=== PATIENT | female | born 1995 | race Two or more races ===

== ENCOUNTER 2018-08-30 12:39 | Emergency (ER) | payer OTHER ==
[2018-08-30 13:14] LABS: BASOPHILS % (AUTO) 0.4 %; EOSINOPHILS # (AUTO) 0.1 10^3/uL (0.0-0.7); EOSINOPHILS % (AUTO) 0.9 %; HGB - HEMOGLOBIN 13.3 g/dL (12.0-16.0); LYMPHOCYTES # (AUTO) 2.4 10^3/uL (1.5-3.5); LYMPHOCYTES % (AUTO) 25.4 %; MEAN CORPUSCULAR HEMOGLOBIN 29.2 pg (27.0-31.0); MEAN CORPUSCULAR HGB CONC 33.7 g/dL (32.0-36.0); MEAN CORPUSCULAR VOLUME 86.6 fL (81.0-99.0); MEAN PLATELET VOLUME 10.8 fL (7.9-10.8); MONOCYTES # (AUTO) 0.5 10^3/uL (0.0-1.0); MONOCYTES % (AUTO) 5.3 %; NEUTROPHILS # (AUTO) 6.5 10^3/uL (1.5-6.6); NEUTROPHILS % (AUTO) 67.5 %; PLT - PLATELET COUNT 291 10^3/uL (130-450); RED BLOOD COUNT 4.56 10^6/uL (4.20-5.40); RED CELL DISTRIBUTION WIDTH 12.2 % (12.0-15.0); WHITE BLOOD COUNT 9.6 x10^3/uL (4.8-10.8)
[2018-08-30 13:37] LABS: ALBUMIN 3.9 g/dL (3.2-5.5); ALBUMIN/GLOBULIN RATIO 1.1 (1.0-2.2); BILIRUBIN,TOTAL 0.3 mg/dL (0.2-1.0); CALCIUM 9.7 mg/dL (8.5-10.3); CREATININE 0.6 mg/dL (0.4-1.0); TOTAL PROTEIN 7.4 g/dL (6.7-8.2)
--- NOTE | 2018-08-30 15:38 | Ultrasound Report ---
Reason: 10 week preg vag bleed Procedure Date: 08/30/2018 Accession Number: [id number] / [id number] Procedure: US - OB First Trimester CPT Code: FULL RESULT: EXAM: FIRST TRIMESTER OBSTETRIC ULTRASOUND (Less than 11 weeks) EXAM DATE: 08/30/2018 02:05 PM. CLINICAL HISTORY: 10 week preg vag bleed. LMP: 06/20/2018 COMPARISONS: None. TECHNIQUE: Transabdominal ultrasound examination with static image documentation. CLINICAL DATES: EGA 10 weeks 1 day with MOUNA 03/27/2019 based on LMP. ASSESSMENT: Gestational Sac: Single intrauterine. Mean gestational sac diameter: 41.3 mm = 9 weeks 4 days. Embryo: CRL (crown-rump length) 41.2 mm = 11 weeks 0 days. Cardiac activity: 169 beats per minute. Yolk sac: Not seen . Amniotic fluid: Not accurately assessed at this gestational age. Early placenta: Posterior. Other: No perigestational fluid collection demonstrated. MATERNAL STRUCTURES: Uterus: Anteverted. Unremarkable. Cervix: Closed. Right Ovary/Adnexa: The ovary measures 2.9 x 2 x 2 cm, volume 6.1 cc. Unremarkable. Left Ovary/Adnexa: The ovary measures 2.6 x 1.7 x 1.6 cm, volume 3.7 cc. Unremarkable. Free Fluid: None. Other: None. IMPRESSION: 1. Single intrauterine at EGA 11 weeks 0 days with MOUNA 03/21/2019 based on crown-rump length, which is concordant with clinical dates. 2. Assigned dating is MOUNA 03/27/2019 based on LMP. JHOANAA
[2018-08-30 16:25] LABS: BILIRUBIN,URINE NEGATIVE (NEGATIVE); GLUCOSE, URINE (UA) NEGATIVE (NEGATIVE); KETONES,URINE (UA) NEGATIVE (NEGATIVE); LEUKOCYTE ESTERASE, URINE NEGATIVE (NEGATIVE); NITRITE,URINE NEGATIVE (NEGATIVE); OCCULT BLOOD,URINE NEGATIVE (NEGATIVE); PROTEIN,URINE NEGATIVE (NEGATIVE); UROBILINOGEN,URINE 0.2 (NORMAL) E.U./dL (NORMAL)
[2018-08-30 16:27] LABS: CLARITY,URINE CLEAR (CLEAR)
--- NOTE | 2018-08-30 16:55 | ED Physician Documentation ---
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), P (1) Recently seen: Not recently seen Review of Systems Constitutional: denies: Fever, Chills Cardiac: denies: Chest pain / pressure Respiratory: denies: Cough GI: denies: Vomiting Skin: denies: Rash Musculoskeletal: denies: Neck pain, Back pain Neurologic: denies: Headache PD PAST MEDICAL HISTORY - Past Medical History Past Medical History: No - Past Surgical History Past Surgical History: No - Allergies Allergies/Adverse Reactions: Allergies Allergy/AdvReac Type Severity Reaction Status Date / Time No Known Drug Allergies Allergy Verified 08/30/18 12:47 - Living Situation Living Situation: reports: With family Living Arrangement: reports: At home - Social History Does the pt have substance abuse?: No PD ED PE NORMAL - Vitals Vital signs reviewed: Yes - General General: Alert and oriented X 3, No acute distress - HEENT HEENT: Moist mucous membranes - Neck Neck: Supple, no meningeal sign - Cardiac Cardiac: RRR - Respiratory Respiratory: No respiratory distress, Clear bilaterally - Abdomen Abdomen: Soft, Non tender, Non distended - Female Female : Pt declined - Derm Derm: Warm and dry - Extremities Extremities: No edema, No calf tenderness / cord - Neuro Neuro: Alert and oriented X 3 Results - Vitals Vitals: Vital Signs - 24 hr 08/30/18 08/30/18 12:44 16:57 Temperature 37.2 C 36.8 C Heart Rate 81 64 Respiratory 14 18 Rate Blood Pressure 118/83 H 118/65 O2 Saturation 100 97 Oxygen O2 Source Room air - Labs Labs: Laboratory Tests 08/30/18 08/30/18 08/30/18 13:07 13:07 13:07 WBC 9.6 RBC 4.56 Hgb 13.3 Hct 39.5 MCV 86.6 MCH 29.2 MCHC 33.7 RDW 12.2 Plt Count 291 MPV 10.8 Neut # (Auto) 6.5 Lymph # (Auto) 2.4 [place] # (Auto) 0.5 Eos # (Auto) 0.1 Baso # (Auto) 0.0 Absolute Nucleated RBC 0.00 Nucleated RBC % 0.0 Sodium 139 Potassium 3.8 Chloride 102 Carbon Dioxide 25 Anion Gap 12.0 BUN 11 Creatinine 0.6 Estimated GFR (MDRD) 126 Glucose 109 H Calcium 9.7 Total Bilirubin 0.3 AST 14 ALT 15 Alkaline Phosphatase 46 Total Protein 7.4 Albumin 3.9 Globulin 3.5 Albumin/Globulin Ratio 1.1 Lipase 33 HCG, Quant 346756.00 Urine Color Urine Clarity Urine pH Ur Specific [place] Urine Protein Urine Glucose (UA) Urine Ketones Urine Occult Blood Urine Nitrite Urine Bilirubin Urine Urobilinogen Ur Leukocyte Esterase Ur Microscopic Review Urine Culture Comments Blood Type 08/30/18 08/30/18 13:07 15:30 WBC RBC Hgb Hct MCV MCH MCHC RDW Plt Count MPV Neut # (Auto) Lymph # (Auto) [place] # (Auto) Eos # (Auto) Baso # (Auto) Absolute Nucleated RBC Nucleated RBC % Sodium Potassium Chloride Carbon Dioxide Anion Gap BUN Creatinine Estimated GFR (MDRD) Glucose Calcium Total Bilirubin AST ALT Alkaline Phosphatase Total Protein Albumin Globulin Albumin/Globulin Ratio Lipase HCG, Quant Urine Color YELLOW Urine Clarity CLEAR Urine pH 6.0 Ur Specific [place] 1.010 Urine Protein NEGATIVE Urine Glucose (UA) NEGATIVE Urine Ketones NEGATIVE Urine Occult Blood NEGATIVE Urine Nitrite NEGATIVE Urine Bilirubin NEGATIVE Urine Urobilinogen 0.2 (NORMAL) Ur Leukocyte Esterase NEGATIVE Ur Microscopic Review NOT INDICATED Urine Culture Comments NOT INDICATED Blood Type O POSITIVE - Rads (name of study) OB ultrasound Radiology: Prelim report reviewed, EMP read contemporaneously, See rad report (Single intrauterine at EGA 11 weeks 0 days with MOUNA 03/21/2019 based on crown-rump length, which is concordant with clinical dates. 2. Assigned dating is MOUNA 03/27/2019 based on LMP. ) PD MEDICAL DECISION MAKING - ED course Complexity details: reviewed results, re-evaluated patient, considered differential, d/w patient ED course: 23-year-old female with a threatened . IUP with heart rates present on ultrasound. No evidence of ectopic. No evidence of intrauterine demise. No other acute findings. We will follow-up with OB for further care. Patient counseled regarding signs and symptoms for which I believe and urgent re-evaluation would be necessary. Patient with good understanding of and agreement to plan and is comfortable going home at this time This document was made in part using voice recognition software. While efforts are made to proofread this document, sound alike and grammatical errors may occur. Departure - Departure Disposition: 01 Home, Self Care Clinical Impression: Threatened affecting intrauterine Condition: Good Instructions: ED Miscarriage Poss Follow-Up: Pelon Quiñonez ARNP [Primary Care Provider] - Within 3 Days Comments: Follow-up with your doctor for repeat hCG in 3 days to ensure it is going up. Your ultrasound is normal today. You are approximately 11 weeks along. Return if you worsen. It was [id number] today Discharge Date/Time: 08/30/18 17:06
[2018-08-30 16:57] VITALS: BP 118/65
== END 2018-08-30 17:06 | disposition home or self-care (01) ==
LOC: ED 12:39
DX: O20.0 Threatened abortion (principal); Z3A.11 11 weeks gestation of pregnancy
CPT/HCPCS: 76801; 80053; 81001; 81003; 83690; 84702; 85025; 86900; 86901; 87086; 99283

== ENCOUNTER 2019-02-20 05:18 | Emergency (ER) | payer OTHER ==
[2019-02-20] MEDS ORDERED: ASPIRIN CHEW 81 MG TABLET PO STA (05:34)
--- NOTE | 2019-02-20 05:34 | ED Physician Documentation ---
History of Present Illness - Stated complaint Stated Complaint: DIZZY,WEAK - Chief complaint Chief Complaint: Cardiac - History obtained from History obtained from: Patient - History of Present Illness Timing: Last night Pain level now: 5 Improved by: nothing Worsened by: no exacerbating factors - Additonal information Additional information: c/o nausea, dizziness, fatigue since last night. She then developed midline chest and RUQ pain at 10 PM which has been waxing and waning without apparent exacerbating or ameliorating factors. She is 35 weeks . Review of Systems Constitutional: reports: Fatigue. denies: Fever, Chills, Sweats Cardiac: reports: Chest pain / pressure. denies: Palpitations, Pedal edema Respiratory: denies: Dyspnea, Cough, Wheezing GI: reports: Abdominal Pain. denies: Nausea, Vomiting : reports: Now EGA (35 weeks). denies: Dysuria, Frequency Skin: denies: Rash Musculoskeletal: denies: Back pain PD PAST MEDICAL HISTORY - Past Medical History Cardiovascular: None Respiratory: None Neuro: None Endocrine/Autoimmune: None GI: None [employer]: None : None HEENT: None Psych: None Musculoskeletal: None Derm: None - Past Surgical History Past Surgical History: No /[employer]: section - Present Medications Home Medications: Ambulatory Orders Medication Instructions Recorded Confirmed Famotidine 20 mg PO DAILY #30 tablet 02/20/19 Loratadine [Allergy] 10 mg PO DAILY 02/20/19 02/20/19 - Allergies Allergies/Adverse Reactions: Allergies Allergy/AdvReac Type Severity Reaction Status Date / Time No Known Drug Allergies Allergy Verified 02/20/19 05:27 - Social History Does the pt smoke?: No Smoking Status: Never smoker Does the pt drink ETOH?: No Does the pt have substance abuse?: No - Immunizations Immunizations are current?: Yes - POLST Patient has POLST: No PD ED PE NORMAL - Vitals Vital signs reviewed: Yes - General General: Alert and oriented X 3, No acute distress, Well developed/nourished - HEENT HEENT: Moist mucous membranes - Neck Neck: Supple, no meningeal sign - Cardiac Cardiac: RRR, No murmur, No gallop, No rub - Respiratory Respiratory: No respiratory distress, Clear bilaterally - Abdomen Abdomen: Soft, Non tender - Back Back: No CVA TTP - Derm Derm: Normal color, Warm and dry - Extremities Extremities: No edema Results - Vitals Vitals: Vital Signs - 24 hr 02/20/19 02/20/19 02/20/19 05:20 05:46 06:00 Temperature 36.5 C Heart Rate 95 84 Respiratory 18 12 Rate Blood Pressure 141/78 H 128/93 H 117/81 H O2 Saturation 100 97 02/20/19 02/20/19 06:15 08:51 Temperature Heart Rate 90 98 Respiratory 14 18 Rate Blood Pressure 112/84 H 137/78 H O2 Saturation 96 100 Oxygen O2 Source Room air - Labs Labs: Laboratory Tests 02/20/19 02/20/19 02/20/19 05:45 05:45 06:45 WBC 8.2 RBC 4.18 L Hgb 11.8 L Hct 35.8 L MCV 85.6 MCH 28.2 MCHC 33.0 RDW 12.8 Plt Count 237 MPV 10.5 Neut # (Auto) 6.3 Lymph # (Auto) 1.3 L [place] # (Auto) 0.5 Eos # (Auto) 0.1 Baso # (Auto) 0.0 Absolute Nucleated RBC 0.00 Nucleated RBC % 0.0 Sodium 136 Potassium 3.6 Chloride 104 Carbon Dioxide 24 Anion Gap 8.0 BUN 8 Creatinine 0.6 Estimated GFR (MDRD) 125 Glucose 87 Calcium 8.8 Total Bilirubin 0.5 AST 16 ALT 12 Alkaline Phosphatase 102 Total Protein 6.5 L Albumin 3.2 Globulin 3.3 Albumin/Globulin Ratio 1.0 Lipase 31 Urine Color YELLOW Urine Clarity CLEAR Urine pH 6.0 Ur Specific [place] <=1.005 Urine Protein NEGATIVE Urine Glucose (UA) NEGATIVE Urine Ketones NEGATIVE Urine Occult Blood NEGATIVE Urine Nitrite NEGATIVE Urine Bilirubin NEGATIVE Urine Urobilinogen 0.2 (NORMAL) Ur Leukocyte Esterase NEGATIVE Ur Microscopic Review NOT INDICATED Urine Culture Comments NOT INDICATED Urine Creatinine Ur Total Protein Timed Protein/Creatinin Ratio 02/20/19 06:45 WBC RBC Hgb Hct MCV MCH MCHC RDW Plt Count MPV Neut # (Auto) Lymph # (Auto) [place] # (Auto) Eos # (Auto) Baso # (Auto) Absolute Nucleated RBC Nucleated RBC % Sodium Potassium Chloride Carbon Dioxide Anion Gap BUN Creatinine Estimated GFR (MDRD) Glucose Calcium Total Bilirubin AST ALT Alkaline Phosphatase Total Protein Albumin Globulin Albumin/Globulin Ratio Lipase Urine Color Urine Clarity Urine pH Ur Specific [place] Urine Protein Urine Glucose (UA) Urine Ketones Urine Occult Blood Urine Nitrite Urine Bilirubin Urine Urobilinogen Ur Leukocyte Esterase Ur Microscopic Review Urine Culture Comments Urine Creatinine 32.4 Ur Total Protein Timed < 6 Protein/Creatinin Ratio Not Reportable - Rads (name of study) RUQ US Radiology: Prelim report reviewed, See rad report PD MEDICAL DECISION MAKING - ED course Complexity details: reviewed results, re-evaluated patient, considered differential, d/w patient Departure - Departure Disposition: 01 Home, Self Care Clinical Impression: Upper abdominal pain Qualifiers: Weeks of gestation: 35 weeks Qualified Code(s): Z3A.35 - 35 weeks gestation of Condition: Stable Instructions: ED Abdominal Pain Unkn Cause Follow-Up: Pelon Quiñonez ARNP [Primary Care Provider] - Prescriptions: Famotidine 20 mg PO DAILY #30 tablet Comments: Use famotidine acid reducing medicine twice daily for the first for 5 days and t hen daily after that. You can continue antacid such as Maalox or Mylanta if needed. Tylenol if needed for pains every 4-6 hours. 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 Your blood test and ultrasound did not show any acute process of the liver or pancreas or gallbladder nor the kidneys. Consider the possibility of the reflux and heartburn causing some pain or may be musculoskeletal in which case the Tylenol should help. Discharge Date/Time: 02/20/19 08:58
[2019-02-20 05:56] LABS: BASOPHILS % (AUTO) 0.2 %; EOSINOPHILS # (AUTO) 0.1 10^3/uL (0.0-0.7); EOSINOPHILS % (AUTO) 1.3 %; HGB - HEMOGLOBIN 11.8 g/dL (12.0-16.0); LYMPHOCYTES # (AUTO) 1.3 10^3/uL (1.5-3.5); LYMPHOCYTES % (AUTO) 15.3 %; MEAN CORPUSCULAR HEMOGLOBIN 28.2 pg (27.0-31.0); MEAN CORPUSCULAR VOLUME 85.6 fL (81.0-99.0); MEAN PLATELET VOLUME 10.5 fL (7.9-10.8); MONOCYTES # (AUTO) 0.5 10^3/uL (0.0-1.0); MONOCYTES % (AUTO) 5.8 %; NEUTROPHILS # (AUTO) 6.3 10^3/uL (1.5-6.6); NEUTROPHILS % (AUTO) 76.7 %; PLT - PLATELET COUNT 237 10^3/uL (130-450); RED BLOOD COUNT 4.18 10^6/uL (4.20-5.40); RED CELL DISTRIBUTION WIDTH 12.8 % (12.0-15.0); WHITE BLOOD COUNT 8.2 x10^3/uL (4.8-10.8)
[2019-02-20 06:10] LABS: ALBUMIN 3.2 g/dL (3.2-5.5); BILIRUBIN,TOTAL 0.5 mg/dL (0.2-1.0); CALCIUM 8.8 mg/dL (8.5-10.3); CREATININE 0.6 mg/dL (0.4-1.0); TOTAL PROTEIN 6.5 g/dL (6.7-8.2)
[2019-02-20 06:56] LABS: BILIRUBIN,URINE NEGATIVE (NEGATIVE); CLARITY,URINE CLEAR (CLEAR); GLUCOSE, URINE (UA) NEGATIVE (NEGATIVE); KETONES,URINE (UA) NEGATIVE (NEGATIVE); LEUKOCYTE ESTERASE, URINE NEGATIVE (NEGATIVE); NITRITE,URINE NEGATIVE (NEGATIVE); OCCULT BLOOD,URINE NEGATIVE (NEGATIVE); PROTEIN,URINE NEGATIVE (NEGATIVE); UROBILINOGEN,URINE 0.2 (NORMAL) E.U./dL (NORMAL)
[2019-02-20 07:18] LABS: CREATININE,URINE 32.4 mg/dL
[2019-02-20 07:19] LABS: TOTAL PROTEIN,URINE TIMED < 6 mg/dL
--- NOTE | 2019-02-20 08:21 | Ultrasound Report ---
Reason: RUQ pain Procedure Date: 02/20/2019 Accession Number: [id number] / [id number] Procedure: US - Abdomen Limited CPT Code: Final Report FULL RESULT: EXAM: ABDOMEN ULTRASOUND LIMITED, RUQ EXAM DATE: 02/20/2019 08:05 AM. CLINICAL HISTORY: Right upper quadrant pain. COMPARISON: None. TECHNIQUE: Real-time scanning was performed with static images obtained. FINDINGS: Liver: Normal in size and echotexture. 14.8 cm. Main portal vein flow: Hepatopetal. Gallbladder: Normal. No stones, wall thickening, or sonographic William's sign. Biliary System: CBD measures 2 mm. No intrahepatic or extrahepatic ductal dilatation. Pancreas: Distal pancreas not well-seen. Limitations secondary to bowel gas. Remaining pancreas unremarkable. Right kidney: 12.3 cm. Mild to moderate right hydronephrosis with the renal pelvis measuring 1.8 cm and the right ureteropelvic junction measuring 1.2 cm. Bladder: No obvious stone or mass. Both ureteral jets are seen. Other: Single intrauterine with a heart rate of 141 bpm. IMPRESSION: 1. No liver mass or intrahepatic bladder chelation. 2. Normal gallbladder and common bile duct. Distal pancreas not well seen. Remaining pancreas is otherwise unremarkable. 3. Mild to moderate right hydronephrosis. Both ureteral jets are seen. Findings may be related to patient's . RADIA
[2019-02-20] MEDS ORDERED: FAMOTIDINE 20 MG TABLET PO STA (08:41)
[2019-02-20] MEDS ORDERED: ACETAMINOPHEN 325 MG TABLET PO STA (08:41)
[2019-02-20] MEDS ORDERED: MAG HYDROX/AL HYDROX/SIMETH 30 ML UDC PO STA (08:41)
--- NOTE | 2019-02-20 08:44 | ED Physician Documentation ---
ED Addendum - Addendum Addendum: 02/20/19 08:42 Patient is feeling okay at this time. She reports the pain in the upper abdomen to the chest area without any cold or cough symptoms nor any relationship to eating. There is a slight pleuritic component she says. She has had a lot of heartburn and reflux and uses Tums often. She does not have any abdominal tenderness at this time. She is breathing unlabored Neeraj. Her ultrasound report is back showing normal gallbladder kidneys and normal heart tone. No acute process seen. The common bile duct was also normal at 2 mm. The patient will be discharged home at this point. Possibilities include esophagitis, some possible mild pleurisy, musculoskeletal pain, other process. We can treat her heartburn and reflux more consistently with some famotidine. She can add Tylenol and antacids if needed. See if this helps with her upper abdominal pain as well.
[2019-02-20 08:52] VITALS: BP 137/78
== END 2019-02-20 08:58 | disposition home or self-care (01) ==
LOC: ED 05:18
DX: O99.89 Other specified diseases and conditions complicating pregnancy, childbirth and the puerperium (principal); R10.11 Right upper quadrant pain; R42 Dizziness and giddiness; O99.613 Diseases of the digestive system complicating pregnancy, third trimester; K21.9 Gastro-esophageal reflux disease without esophagitis; Z3A.35 35 weeks gestation of pregnancy
CPT/HCPCS: 36415; 76705; 80053; 81003; 82570; 83690; 84156; 85025; 93005; 99284; A9270; 81001; 87086

== ENCOUNTER 2019-03-06 08:00 | Outpatient (CLI) | payer OTHER ==
[2019-03-07 00:29] LABS: TRICHOMONAS VAGINALIS DNA NEGATIVE (NEGATIVE)
== END 2019-03-06 23:59 | disposition home or self-care (01) ==
LOC: LAB.R 08:00
PROVIDERS: ATTEND Obstetrics & Gynecology
DX: Z34.90 Encounter for supervision of normal pregnancy, unspecified, unspecified trimester (principal)
CPT/HCPCS: 87077; 87081; 87491; 87591; 87661

== ENCOUNTER 2019-03-11 19:47 | Outpatient (CLI) | payer OTHER ==
[2019-03-11] MEDS ORDERED: hydrOXYzine PAMOATE 25 MG CAPSULE PO ONE (22:35)
--- NOTE | 2019-03-11 22:40 | PROCEDURE REPORT ---
- HPI Diagnosis/Indication for NST: Other (labor check) Current EDU 03/27/19 Gestation 37 Weeks and 5 Days 2 Para 1 Vital Signs Temperature 98.4 F 03/11/19 20:09 Heart Rate 82 03/11/19 20:09 Respiratory Rate 16 03/11/19 20:09 O2 Saturation 100 03/11/19 20:09 Temperature 98.4 F 03/11/19 20:09 Heart Rate 82 03/11/19 20:09 Respiratory Rate 16 03/11/19 20:09 Blood Pressure O2 Saturation 100 03/11/19 20:09 - NST Procedure NST Procedure Start Time 05:36 Stop Time 06:08 - Results and Plan Findings/Impression: Pt with 8/10 pain at rest for the past day, in the low back, sacral area. Pain wraps around to the low belly and belly feels tight. These flares are 10/10 and happen every 5-10min. No VB, no LOF. Good FM. no dysuria, no hematuria, no fevers, no vaginal itching, no odor. PMH neg PSH: x1 AVSS, alert, smiling, NAD. Sleeping when we entered the room. Converses easily without breaks in conversation. Abd soft, non distended. Tender throughout. No tenderness when the bed was jiggled. SVE fingertip and posterior; unchanged over 2h. Category 1 NST Rare UCs A/P: uterine irritablity. No evidence of infection. Doubt secondary abdominal process with the lack of tenderness when bed is jiggled, normal VS, and soft abdomen without rebound, doubt chorio with diffuse abd tenderness--not just uterus--and no increased pain with movement. No evidence of labor or of frequent UCs. Will discharge home with vistaril, return PRN increase in symptoms or feeling sick or feverish.
--- NOTE | 2019-03-11 22:41 | Discharge Plan ---
Discharge Plan Problem Reviewed?: Yes Disposition: Home, Self Care Condition: Good Diet: Regular Activity Restrictions: No Restrictions Shower Restrictions: No No Smoking: If you smoke, Please STOP! Call for help.
== END 2019-03-11 23:00 | disposition home or self-care (01) ==
LOC: WFO 19:47 → FBP 19:49 → WFO 23:00
PROVIDERS: ATTEND Obstetrics & Gynecology
DX: O99.89 Other specified diseases and conditions complicating pregnancy, childbirth and the puerperium (principal); R10.817 Generalized abdominal tenderness; R10.84 Generalized abdominal pain; M53.3 Sacrococcygeal disorders, not elsewhere classified; Z3A.37 37 weeks gestation of pregnancy
CPT/HCPCS: 99213; A9270

== ENCOUNTER 2019-03-13 10:45 | Inpatient (IN) | payer OTHER ==
[2019-03-13] MEDS ORDERED: LACTATED RINGERS 1,000 ML IV ONE ×3 (11:10→14:57)
[2019-03-13] MEDS ORDERED: SODIUM CHLORIDE FLUSH 0.9% 10 ML SYRINGE IVP PRN ×3 (11:19→17:19)
[2019-03-13] MEDS ORDERED: ONDANSETRON 4 MG/2 ML VIAL IVP PRN (11:21)
--- NOTE | 2019-03-13 11:33 | HISTORY & PHYSICAL EXAMINATION ---
Admit History - Smoking Status: Never smoker Meds/Allgy - Home Medications Home Medications: Ambulatory Orders Medication Instructions Recorded Confirmed Famotidine 20 mg PO DAILY #30 tablet 02/20/19 Loratadine [Allergy] 10 mg PO DAILY 02/20/19 02/20/19 - Allergies Allergies/Adverse Reactions: Allergies Allergy/AdvReac Type Severity Reaction Status Date / Time No Known Drug Allergies Allergy Verified 02/20/19 05:27 Plan for Labor - Plan For Labor I expect patient to be DC'd or transferred within 96 hours.: Yes Plan for Labor: CC: pain HPI: Seen in triage 36h with same complaints. Was sent home with vistaril and felt better until yesterday afternoon. Then she began having the 8/10 low back pain again, bilaterally. Wraps around to the lower abdomen. Right side is a bit more tender than left. No RUQ or epigastric pain that is worse than the lower abdomen. Had one bout of emesis she thinks was due to the pain. Had diarrhea yesterday. Blurry vision yesterday but is inconsistent on whether there were scotoma or scintillation. Some increase in edema yesterday. No LEWIS. no VB, No LOF. PSH: x1 for breech PMH: neg Meds: PNV Allergies: NKDA OB: , last delivered at 37w due to preeclampsia. Rh+, RI, Hct 35, plts 283, neg STI screen, normal pap, 1h 91 Vax: s/p tdap and flu Dating: LMP c/w 11w US, MOUNA 03/27 Genetic screen: normal QS. US 02/03 EFW 28%ile, ROMARIO 13. Anatomy ultrasound normal, posterior placenta Gestational HTN diagnosed at [facility] in early January --Dx is on an US order--but I don't see any abnormal BPs in her chart--last chart note from 01/02. O: AVSS, SBP 138 Alert, grimacing, squirming Abd soft, diffusely tender same as last time. No tenderness when bed is abruptly jiggled or when she was suddenly laid flat. No rebound or guarding. SVE closed / 50/-3/post/soft LE with trace edema bilat DTR 3+ right and 2+ left Category 1 NST Rare UCs 1+ protein. small LCE, neg nitrite. CMP normal. Hct 37, plts 273, WBC 11 P:C ratio 2.6 Pt asked RN if she would get a today. RN went through list of indcations for repeat and said that pain in itself was usually not an indication for a 37w . Patient nodded in understanding, quit writhing, and is conversing easily with her partner, and stated that she may just want to go home. A/P: 24yo at 38w0d with intermittent abdominal pain of unclear etiology. Also with a history of gestational hypertension this with normal BPs today, in triage 36h before, and both visits in clinic. [facility] [employer] apparently had elevated blood pressures. This combined with P:C ratio of 2.6 means a likely preeclampsia variant and need for delivery. Discussed indiction for delivery. Alternative of vaginal delivery was reviewed but we are not able to do them at this location. risks including bleeding, infection, trauma to local organs, anesthesia compliations, and problems with future pregnancies because of scar tissue on the uterus were reveiwed. All questions answered and consent signed. NPO. Plan to go to the OR when it is available.
[2019-03-13 11:37] LABS: BASOPHILS % (AUTO) 0.4 %; EOSINOPHILS # (AUTO) 0.1 10^3/uL (0.0-0.7); EOSINOPHILS % (AUTO) 0.5 %; LYMPHOCYTES # (AUTO) 1.6 10^3/uL (1.5-3.5); MEAN CORPUSCULAR HEMOGLOBIN 27.2 pg (27.0-31.0); MEAN CORPUSCULAR HGB CONC 32.5 g/dL (32.0-36.0); MEAN CORPUSCULAR VOLUME 83.7 fL (81.0-99.0); MEAN PLATELET VOLUME 10.6 fL (7.9-10.8); MONOCYTES # (AUTO) 0.6 10^3/uL (0.0-1.0); MONOCYTES % (AUTO) 5.1 %; PLT - PLATELET COUNT 273 10^3/uL (130-450); RED BLOOD COUNT 4.41 10^6/uL (4.20-5.40); RED CELL DISTRIBUTION WIDTH 12.9 % (12.0-15.0); WHITE BLOOD COUNT 11.4 x10^3/uL (4.8-10.8)
[2019-03-13 11:51] LABS: ALBUMIN 3.2 g/dL (3.2-5.5); ALBUMIN/GLOBULIN RATIO 0.9 (1.0-2.2); BILIRUBIN,TOTAL 0.5 mg/dL (0.2-1.0); CALCIUM 9.1 mg/dL (8.5-10.3); CREATININE 0.7 mg/dL (0.4-1.0); TOTAL PROTEIN 6.8 g/dL (6.7-8.2)
[2019-03-13 11:55] LABS: BILIRUBIN,URINE NEGATIVE (NEGATIVE); GLUCOSE, URINE (UA) NEGATIVE (NEGATIVE); KETONES,URINE (UA) NEGATIVE (NEGATIVE); LEUKOCYTE ESTERASE, URINE SMALL (NEGATIVE); NITRITE,URINE NEGATIVE (NEGATIVE); OCCULT BLOOD,URINE SMALL (NEGATIVE); PROTEIN,URINE 100 mg/dL (NEGATIVE); UROBILINOGEN,URINE 0.2 (NORMAL) E.U./dL (NORMAL)
[2019-03-13 11:56] LABS: CLARITY,URINE HAZY (CLEAR)
[2019-03-13 12:02] LABS: BACTERIA,URINE Many /HPF (None Seen); RBC,URINE 0-5 /HPF (0-5); SQUAMOUS EPITHELIAL CELL,UR FEW Squamous (<= Few); WBC CLUMPS,URINE PRESENT
[2019-03-13 12:06] LABS: CREATININE,URINE 28.3 mg/dL; PROTEIN/CREATININE RATIO,URINE 2.6 (<=0.2)
[2019-03-13] MEDS ORDERED: FAMOTIDINE 20 MG/2 ML VIAL IVP ONE (12:33)
[2019-03-13] MEDS ORDERED: CITRIC ACID/SODIUM CITRATE 15 ML UDC PO ONE (12:33)
[2019-03-13] MEDS ORDERED: ceFAZolin 2 GM in SODIUM CHLORIDE 0.9% 100ML 100 ML IV ONE (12:33)
[2019-03-13] MEDS ORDERED: ACETAMINOPHEN 1,000 MG/100 ML 100 ML IV ONE ×2 (13:14)
--- NOTE | 2019-03-13 13:28 | ANESTHESIA ---
Pre-Anesthesia VS, & Labs - Diagnosis IUP - Procedure Repeat C Sec Vital Signs: Temp Pulse Resp BP Pulse Ox 36.9 C 84 16 116/62 100 03/13/19 11:30 03/13/19 12:56 03/13/19 12:56 03/13/19 12:56 03/13/19 12:56 Height 5 ft 4 in Weight (kg) 80.739 kg Body Mass Index 29.8 - Is Patient ?: Yes - Lab Results Current Lab Results: Laboratory Tests 03/13/19 11:20: Sodium 138, Potassium 3.9, Chloride 103, Carbon Dioxide 24, Anion Gap 11.0, BUN 5 L, Creatinine 0.7, Estimated GFR (MDRD) 105, Glucose 86, Calcium 9.1, Total Bilirubin 0.5, AST 16, ALT 10, Alkaline Phosphatase 137 H, Total Protein 6.8, Albumin 3.2, Globulin 3.6, Albumin/Globulin Ratio 0.9 L 03/13/19 11:20: WBC 11.4 H, RBC 4.41, Hgb 12.0, Hct 36.9 L, MCV 83.7, MCH 27.2, MCHC 32.5, RDW 12.9, Plt Count 273, MPV 10.6, Neut # (Auto) 9.0 H, Lymph # (Auto) 1.6, [place] # (Auto) 0.6, Eos # (Auto) 0.1, Baso # (Auto) 0.0, Absolute Nucleated RBC 0.00, Nucleated RBC % 0.0 Fish Bones: 03/13/19 11:20 03/13/19 11:20 Home Medications and Allergies Active Medications Citric Acid/Sodium Citrate (Bicitra) 15 ml PO ONCE ONE Stop: 03/13/19 12:34 Famotidine (Pepcid) 20 mg IVP BID ONE Stop: 03/13/19 12:34 Acetaminophen (Ofirmev) 100 mls @ 400 mls/hr IV ONCE ONE Stop: 03/13/19 13:28 Ondansetron HCl (Zofran Inj) 4 mg IVP Q4HR PRN PRN Reason: Nausea / Vomiting Sodium Chloride (Normal Saline Flush 0.9%) 10 ml IVP PRN PRN PRN Reason: NEEDED PER PROVIDER ORDERS Loratadine [Allergy] 10 mg PO DAILY 02/20/19 Allergies/Adverse Reactions: Allergies Allergy/AdvReac Type Severity Reaction Status Date / Time No Known Drug Allergies Allergy Verified 02/20/19 05:27 Anes History & Medical History - Anesthetic History Anesthesia Complications: reports: No previous complications Family history of Anesthesia Complications: Denies - Medical History Cardiovascular: reports: None Pulmonary: reports: None Gastrointestinal: reports: None, GERD Urinary: reports: None Neuro: reports: None, Other (headaches) Musculoskeletal: reports: None Endocrine/Autoimmune: reports: None Blood Disorders: reports: None Skin: reports: None Smoking Status: Never smoker Psychosocial: reports: No issues indicated - Surgical History Gynecologic: section Exam General: Alert, Oriented x3, Cooperative, No acute distress Dental: WNL Mouth Openin Fingerbreadth Neck Mobility: Normal Mallampati classification: II Thyromental Distance: 4-6 cm Respiratory: Lungs clear, Normal breath sounds, No respiratory distress, No accessory muscle use Cardiovascular: Regular rate, Normal S1, Normal S2, No murmurs Abdomen: Normal bowel sounds, Soft, No tenderness, No hepatospenomegaly, No masses Extremities: No clubbing, No cyanosis, No edema, Normal pulses, No t enderness/swelling Neurological: Normal gait, Normal speech, Strength at 5/5 X4 ext, Normal tone, Sensation intact, Cranial nerves 3-12 NL, Reflexes 2+ Mental/Cognitive Status: Alert/Oriented X3, Normal for patient Cognitive Status: Within normal limits Plan Anesthesia Type: Spinal Consent for Procedure(s) Verified and Reviewed: Yes Code Status: Attempt Resuscitation ASA classification: 2-Mild systemic disease Is this case an emergency?: No
[2019-03-13] MEDS ORDERED: fentaNYL 250 MCG/5 ML VIAL IVP ONE (15:30)
[2019-03-13] MEDS ORDERED: ePHEDrine 50 MG/ML VIAL IVP ONE (15:30)
[2019-03-13] MEDS ORDERED: OXYTOCIN 10 UNIT/ML VIAL IV ONE (15:30)
[2019-03-13] MEDS ORDERED: NEOSTIGMINE 1 MG/1 ML 10 ML MDV IVP ONE (15:30)
[2019-03-13] MEDS ORDERED: ONDANSETRON 4 MG/2 ML VIAL IVP ONE (15:30)
[2019-03-13] MEDS ORDERED: KETOROLAC 30 MG/ML VIAL IVP ONE (15:30)
[2019-03-13] MEDS ORDERED: MORPHINE PF 5 MG/10 ML AMP EP ONE (15:30)
[2019-03-13] MEDS ORDERED: LACTATED RINGERS 1,000 ML IV SCH (17:00)
[2019-03-13] MEDS ORDERED: SODIUM CHLORIDE FLUSH 0.9% 10 ML SYRINGE IVP SCH (17:00)
--- NOTE | 2019-03-13 17:18 | OPERATIVE REPORT ---
Operative Report - General Admit Date: 03/13/19 Procedure Date: 03/13/19 Planned Procedure: repeat Pre-Op Diagnosis: preeclampsia varient, prior , breech, IUP at 38w Procedure Performed: repeat Post Op Diagnosis: preeclampsia varient, s/p repeat - Procedure Note Primary Surgeon: Mariajose Secondary Surgeon: Donavan Anesthesia Technique: Spinal Pathology: cord blood to pathology for typing. Placenta not sent. No gasses. IV Fluids (mL): 900 Estimated Blood Loss (mL): 600 Urine Output (mL): 250 Findings: Clear fluid. Normal ut, ov , tubes. Liveborn male, 09/05, weight pending. Complications: none
[2019-03-13] MEDS ORDERED: SIMETHICONE CHEW 80 MG TABLET PO PRN (17:19)
[2019-03-13] MEDS ORDERED: WITCH HAZEL/GLYCERIN 1 PAD TOP PRN (17:19)
[2019-03-13] MEDS ORDERED: OXYTOCIN/DEXTROSE 5 % 30 UNIT/500 ML BAG IV PRN (17:19)
[2019-03-13] MEDS ORDERED: MAGNESIUM HYDROXIDE 2,400 MG/30 ML UDC PO PRN (17:19)
[2019-03-13] MEDS ORDERED: HYDROCORTISONE 1% CREAM 28 GM TUBE PR PRN (17:19)
[2019-03-13] MEDS ORDERED: ONDANSETRON ODT 4 MG TABLET TL PRN (17:19)
--- NOTE | 2019-03-13 22:03 | OPERATIVE REPORT ---
DATE OF SERVICE: 03/13/2019 Physician: Samanta Billy MD PREOPERATIVE DIAGNOSES 1. Intrauterine at 38 weeks and 0 days. 2. Prior section. 3. Breech presentation. 4. Preeclampsia variant. POSTOPERATIVE DIAGNOSES 1. Status post section. 2. Preeclampsia variant. PROCEDURE PERFORMED: Repeat low transverse section. SURGEON: Samanta Billy MD. SAP GATHERER: [place]. ANESTHESIA: Spinal. ESTIMATED BLOOD LOSS: 600 mL. IV FLUIDS: 900 mL. URINE OUTPUT: 250 mL. COUNTS: Correct x2. COMPLICATIONS: None apparent. DISPOSITION: Stable to the recovery room. PROPHYLAXIS: SCDs to bilateral lower extremities, 2 grams of Ancef IV prior to skin incision. SPECIMENS: Cord blood sent for typing. FINDINGS 1. Liveborn male, Apgars 7 at one minute and 8 at five minutes. 2. Clear amniotic fluid. 3. Normal uterus, ovaries, and fallopian tubes. COUNSELING: The patient has had a prior section and presents to triage with recurrent diffu se abdominal pain. She had preeclampsia with a prior . With this , they maybe had diagnosed her with gestational hypertension. Her blood pressures have always been normal at our [facility] in our clinic. Her preeclampsia. Blood work was normal, but her protein to creatinine ratio w as very elevated. Because of this, the decision was made to deliver. DESCRIPTION OF PROCEDURE: The patient was brought to the operating room, where she received spinal a nesthesia. A Shaw catheter was placed. The patient was placed in a left tilt. SCDs were placed. heart tones were auscultated in the normal range. She was prepped and draped in the usual ster ile fashion. A scalpel was used to make a Pfannenstiel skin incision in the area of the patient's pr ior incision. This was carried down to the fascia, which was nicked in the midline bilaterally. The fascial incision was extended laterally and slightly superiorly using Mayos. Kochers were placed on the inferior margin of the fascial incision and the fascia was sharply and bluntly dissected off of the underlying rectus. The Kochers were replaced superiorly and the same was carried forth. The rec tus muscles were firmly together. Near the midline, they were grasped with Allis clamps and elevated . The peritoneum was sharply entered. The rectus was divided superiorly and inferiorly. The pyrami lupe muscles were also divided. Room was deemed to be adequate. A bladder blade was placed. A sca lpel was used to make a low transverse incision in the lower uterine segment. The uterine cavity was entered with a finger. The uterine incision was extended by placing caudal and cranial traction on the uterine incision. The buttocks were not immediately at the incision, but the heel was deli ronn out of the uterus. The second leg was then delivered. Fundal pressure was used to deliver the body to level of the axilla. The anterior arm was swept across the chest and then delivered. The b danita was rotated 180 degrees and the other arm was similarly delivered. The head was easily delivered from the incision. The cord was left pulsating for about 20 seconds. The baby's color was not impr oving and his grimace was not strong and so the cord was clamped x2 and cut and he was handed to the pediatric team in attendance. Cord blood was obtained for typing. The placenta was then delivered w ith external uterine massage. The uterus was curetted with a dry sponge without return of membranes. The uterine incision was closed with a running layer of 0 Vicryl. A second imbricating layer was p erformed. Hemostasis was excellent. The pelvic contents were palpated and found to be normal. The incision, rectus and fascia were hemostatic. There was a small superficial buttonhole in the fascia about 3 cm cranial to the midline in the incision. This was oversewn with a [id number] of 0 Stef ryl. The fascia was then closed with a running layer of 0 Vicryl. The incision was irrigated. Ther e were no bleeders. The subcutaneous tissues were reapproximated with interrupted sutures of 2-0 Stef ryl. The skin was closed with a running subcuticular layer of 4-0 Monocryl. A wound VAC was then ap plied. Throughout the surgery, the uterus had been checked repeatedly and the fundal tone was excell ent and the uterus was 2 cm below the umbilicus. The patient was frog-legged and cleaned up. Anesth esia then performed a TAP block. TD: 03/13/2019 18:48
[2019-03-13] MEDS: IBUPROFEN 600 MG TABLET PO SCH (22:24)
[2019-03-13] MEDS: DOCUSATE SODIUM 100 MG CAPSULE PO SCH (22:25)
[2019-03-14] MEDS ORDERED: SODIUM CHLORIDE FLUSH 0.9% 10 ML SYRINGE IVP SCH (01:00)
[2019-03-14] MEDS: ACETAMINOPHEN 500 MG TABLET PO SCH ×4 (02:42→19:01)
[2019-03-14] MEDS: IBUPROFEN 600 MG TABLET PO SCH ×4 (08:00→21:06)
[2019-03-14] MEDS: DOCUSATE SODIUM 100 MG CAPSULE PO SCH ×2 (08:00→21:06)
[2019-03-14 08:05] LABS: ALBUMIN 2.9 g/dL (3.2-5.5); ALBUMIN/GLOBULIN RATIO 0.9 (1.0-2.2); BILIRUBIN,TOTAL 0.5 mg/dL (0.2-1.0); CALCIUM 9.2 mg/dL (8.5-10.3); CREATININE 0.6 mg/dL (0.4-1.0); TOTAL PROTEIN 6.1 g/dL (6.7-8.2)
[2019-03-14 08:18] LABS: BASOPHILS % (AUTO) 0.2 %; EOSINOPHILS % (AUTO) 0.1 %; LYMPHOCYTES # (AUTO) 2.2 10^3/uL (1.5-3.5); LYMPHOCYTES % (AUTO) 13.6 %; MEAN CORPUSCULAR HGB CONC 32.8 g/dL (32.0-36.0); MEAN CORPUSCULAR VOLUME 82.2 fL (81.0-99.0); MEAN PLATELET VOLUME 11.3 fL (7.9-10.8); MONOCYTES # (AUTO) 1.1 10^3/uL (0.0-1.0); MONOCYTES % (AUTO) 6.6 %; NEUTROPHILS # (AUTO) 12.8 10^3/uL (1.5-6.6); NEUTROPHILS % (AUTO) 78.8 %; PLT - PLATELET COUNT 262 10^3/uL (130-450); RED BLOOD COUNT 3.71 10^6/uL (4.20-5.40); RED CELL DISTRIBUTION WIDTH 12.7 % (12.0-15.0); WHITE BLOOD COUNT 16.2 x10^3/uL (4.8-10.8)
--- NOTE | 2019-03-14 09:39 | PROVIDER PROGRESS NOTE ---
Objective - Vital Signs/Intake & Output Vital Signs: Vital Signs x48h Temp Pulse Resp BP Pulse Ox 03/14/19 08:07 98.2 F 89 18 118/76 96 03/14/19 02:00 97.9 F 97 16 121/70 96 Intake & Output: Intake & Output 03/11/19 03/12/19 03/13/19 03/14/19 23:59 23:59 23:59 23:59 Intake Total 2625.00 625 Output Total 1485 150 Balance 1140.00 475 - Lab Results Fish Bones: 03/14/19 07:45 03/14/19 07:45 Other Labs: Lab Results x24hrs 03/14/19 03/14/19 03/13/19 Range/Units 07:45 07:45 11:35 WBC 16.2 H (4.8-10.8) x10^3/uL RBC 3.71 L (4.20-5.40) 10^6/uL Hgb 10.0 L (12.0-16.0) g/dL Hct 30.5 L (37.0-47.0) % MCV 82.2 (81.0-99.0) fL MCH 27.0 (27.0-31.0) pg MCHC 32.8 (32.0-36.0) g/dL RDW 12.7 (12.0-15.0) % Plt Count 262 (130-450) 10^3/uL MPV 11.3 H (7.9-10.8) fL Neut # (Auto) 12.8 H (1.5-6.6) 10^3/uL Lymph # (Auto) 2.2 (1.5-3.5) 10^3/uL [place] # (Auto) 1.1 H (0.0-1.0) 10^3/uL Eos # (Auto) 0.0 (0.0-0.7) 10^3/uL Baso # (Auto) 0.0 (0.0-0.1) 10^3/uL Absolute Nucleated RBC 0.00 x10^3/uL Nucleated RBC % 0.0 /100WBC Sodium 137 (135-145) mmol/L Potassium 4.0 (3.5-5.0) mmol/L Chloride 104 (101-111) mmol/L Carbon Dioxide 23 (21-32) mmol/L Anion Gap 10.0 (6-13) BUN 7 (6-20) mg/dL Creatinine 0.6 (0.4-1.0) mg/dL Estimated GFR (MDRD) 125 (>89) Glucose 107 H (70-100) mg/dL Calcium 9.2 (8.5-10.3) mg/dL Total Bilirubin 0.5 (0.2-1.0) mg/dL AST 17 (10-42) IU/L ALT 10 (10-60) IU/L Alkaline Phosphatase 100 (42-121) IU/L Total Protein 6.1 L (6.7-8.2) g/dL Albumin 2.9 L (3.2-5.5) g/dL Globulin 3.2 (2.1-4.2) g/dL Albumin/Globulin Ratio 0.9 L (1.0-2.2) Urine Color LIGHT YELLOW Urine Clarity HAZY (CLEAR) Urine pH 7.0 (5.0-7.5) PH Ur Specific [place] <=1.005 (1.002-1.030) Urine Protein 100 H (NEGATIVE) mg/dL Urine Glucose (UA) NEGATIVE (NEGATIVE) mg/dL Urine Ketones NEGATIVE (NEGATIVE) mg/dL Urine Occult Blood SMALL H (NEGATIVE) Urine Nitrite NEGATIVE (NEGATIVE) Urine Bilirubin NEGATIVE (NEGATIVE) Urine Urobilinogen 0.2 (NORMAL) (NORMAL) E.U./dL Ur Leukocyte Esterase SMALL H (NEGATIVE) Urine RBC 0-5 (0-5) /HPF Urine WBC 11-25 H (0-5) /HPF Urine WBC Clumps PRESENT Ur Squamous Epith Cells FEW Squamous (<= Few) Urine Bacteria Many H (None Seen) /HPF Urine Culture Comments INDICATED Urine Creatinine mg/dL Ur Total Protein Timed mg/dL Protein/Creatinin Ratio (<=0.2) Blood Type Antibody Screen 03/13/19 03/13/19 03/13/19 Range/Units 11:35 11:20 11:20 WBC (4.8-10.8) x10^3/uL RBC (4.20-5.40) 10^6/uL Hgb (12.0-16.0) g/dL Hct (37.0-47.0) % MCV (81.0-99.0) fL MCH (27.0-31.0) pg MCHC (32.0-36.0) g/dL RDW (12.0-15.0) % Plt Count (130-450) 10^3/uL MPV (7.9-10.8) fL Neut # (Auto) (1.5-6.6) 10^3/uL Lymph # (Auto) (1.5-3.5) 10^3/uL [place] # (Auto) (0.0-1.0) 10^3/uL Eos # (Auto) (0.0-0.7) 10^3/uL Baso # (Auto) (0.0-0.1) 10^3/uL Absolute Nucleated RBC x10^3/uL Nucleated RBC % /100WBC Sodium 138 (135-145) mmol/L Potassium 3.9 (3.5-5.0) mmol/L Chloride 103 (101-111) mmol/L Carbon Dioxide 24 (21-32) mmol/L Anion Gap 11.0 (6-13) BUN 5 L (6-20) mg/dL Creatinine 0.7 (0.4-1.0) mg/dL Estimated GFR (MDRD) 105 (>89) Glucose 86 (70-100) mg/dL Calcium 9.1 (8.5-10.3) mg/dL Total Bilirubin 0.5 (0.2-1.0) mg/dL AST 16 (10-42) IU/L ALT 10 (10-60) IU/L Alkaline Phosphatase 137 H (42-121) IU/L Total Protein 6.8 (6.7-8.2) g/dL Albumin 3.2 (3.2-5.5) g/dL Globulin 3.6 (2.1-4.2) g/dL Albumin/Globulin Ratio 0.9 L (1.0-2.2) Urine Color Urine Clarity (CLEAR) Urine pH (5.0-7.5) PH Ur Specific [place] (1.002-1.030) Urine Protein (NEGATIVE) mg/dL Urine Glucose (UA) (NEGATIVE) mg/dL Urine Ketones (NEGATIVE) mg/dL Urine Occult Blood (NEGATIVE) Urine Nitrite (NEGATIVE) Urine Bilirubin (NEGATIVE) Urine Urobilinogen (NORMAL) E.U./dL Ur Leukocyte Esterase (NEGATIVE) Urine RBC (0-5) /HPF Urine WBC (0-5) /HPF Urine WBC Clumps Ur Squamous Epith Cells (<= Few) Urine Bacteria (None Seen) /HPF Urine Culture Comments Urine Creatinine 28.3 mg/dL Ur Total Protein Timed 73 mg/dL Protein/Creatinin Ratio 2.6 H (<=0.2) Blood Type O POSITIVE Antibody Screen NEGATIVE 03/13/19 Range/Units 11:20 WBC 11.4 H (4.8-10.8) x10^3/uL RBC 4.41 (4.20-5.40) 10^6/uL Hgb 12.0 (12.0-16.0) g/dL Hct 36.9 L (37.0-47.0) % MCV 83.7 (81.0-99.0) fL MCH 27.2 (27.0-31.0) pg MCHC 32.5 (32.0-36.0) g/dL RDW 12.9 (12.0-15.0) % Plt Count 273 (130-450) 10^3/uL MPV 10.6 (7.9-10.8) fL Neut # (Auto) 9.0 H (1.5-6.6) 10^3/uL Lymph # (Auto) 1.6 (1.5-3.5) 10^3/uL [place] # (Auto) 0.6 (0.0-1.0) 10^3/uL Eos # (Auto) 0.1 (0.0-0.7) 10^3/uL Baso # (Auto) 0.0 (0.0-0.1) 10^3/uL Absolute Nucleated RBC 0.00 x10^3/uL Nucleated RBC % 0.0 /100WBC Sodium (135-145) mmol/L Potassium (3.5-5.0) mmol/L Chloride (101-111) mmol/L Carbon Dioxide (21-32) mmol/L Anion Gap (6-13) BUN (6-20) mg/dL Creatinine (0.4-1.0) mg/dL Estimated GFR (MDRD) (>89) Glucose (70-100) mg/dL Calcium (8.5-10.3) mg/dL Total Bilirubin (0.2-1.0) mg/dL AST (10-42) IU/L ALT (10-60) IU/L Alkaline Phosphatase (42-121) IU/L Total Protein (6.7-8.2) g/dL Albumin (3.2-5.5) g/dL Globulin (2.1-4.2) g/dL Albumin/Globulin Ratio (1.0-2.2) Urine Color Urine Clarity (CLEAR) Urine pH (5.0-7.5) PH Ur Specific [place] (1.002-1.030) Urine Protein (NEGATIVE) mg/dL Urine Glucose (UA) (NEGATIVE) mg/dL Urine Ketones (NEGATIVE) mg/dL Urine Occult Blood (NEGATIVE) Urine Nitrite (NEGATIVE) Urine Bilirubin (NEGATIVE) Urine Urobilinogen (NORMAL) E.U./dL Ur Leukocyte Esterase (NEGATIVE) Urine RBC (0-5) /HPF Urine WBC (0-5) /HPF Urine WBC Clumps Ur Squamous Epith Cells (<= Few) Urine Bacteria (None Seen) /HPF Urine Culture Comments Urine Creatinine mg/dL Ur Total Protein Timed mg/dL Protein/Creatinin Ratio (<=0.2) Blood Type Antibody Screen Assessment/Plan - Problem List (1) Preeclampsia Impression: S: feeling well. Pain under control. Eat and ambulate OK. Unable to void t his am. No visual changes, LEWIS, or upper abd pain. O: AVSS, normotensive, UOP normal Alert, NAD Abd soft, approp tender, non distended Fundus firm, NT, 3cm below U Incision covered by vac, no surrounding erythema Trace LE edema bilat Normal AST, ALT, Cr, Plts. Hct 30 A/P: 24yo POD #1 s/p repeat for preeclampsia and breech. Preeclampsia variant--had generalized abd pain and P:C ratio of 2--no other sx and no other lab abnormalities--no increased blood pressures. Will watch for signs of worsening preeclampsia otherwise expect ongoing improvement. In and out cath for inability to void. Repeat empty in 4h if unable to void on her own. Otherwise routine postop care.
[2019-03-14] MEDS: oxyCODONE 5 MG TABLET PO PRN ×3 (13:14→22:44)
[2019-03-15] MEDS: ACETAMINOPHEN 500 MG TABLET PO SCH (03:38)
[2019-03-15] MEDS: IBUPROFEN 600 MG TABLET PO SCH ×2 (03:38→09:38)
[2019-03-15] MEDS: oxyCODONE 5 MG TABLET PO PRN ×2 (03:38→09:44)
[2019-03-15] MEDS: DOCUSATE SODIUM 100 MG CAPSULE PO SCH (09:45)
[2019-03-15 12:49] VITALS: BP 118/64
--- NOTE | 2019-03-15 13:25 | Discharge Plan ---
Discharge Plan Problem Reviewed?: Yes Disposition: Home, Self Care Condition: Good Diet: Regular Activity Restrictions: no lifting more than 10lbs, do not get wound vac machine wet Shower Restrictions: No Driving Restrictions: Yes (not while on oxycodone) No Smoking: If you smoke, Please STOP! Call for help. Follow-up with: Jim Chow MD [Provider Admit Priv/Credential] - 1 Week
--- NOTE | 2019-03-15 14:48 | Labor Flowsheet ---
Labor Flowsheet Datetime Report Generated by CPN: 03/15/2019 14:48 Datetime: 03/13/2019 21:34 VITAL SIGNS NBP Sys/Marlen/Mean (mmHg): 122 : 77 : 87 Pulse: 112 COMMUNICATION LaborFlag: OB Triage Datetime: 03/13/2019 21:22 ASSESSMENT A Comments: This FHR tracing is actually from pt Kerrie Ng
--- NOTE | 2019-03-16 13:29 | DISCHARGE SUMMARY ---
Physician: Samanta Billy MD DATE OF ADMISSION: 03/13/2019 DATE OF DISCHARGE: 03/15/2019 ADMITTING DIAGNOSES: 1. Intrauterine at 38 weeks. 2. Prior section. 3. Breech presentation. 4. Preeclampsia variant. 5. Abdominal pain in . DISCHARGE DIAGNOSES: 1. Status post repeat section. 2. Preeclampsia variant, improved. OPERATIONS AND PROCEDURES: 03/13/2019 repeat section, uncomplicated. ESTIMATED BLOOD LOSS: 600 mL FINDINGS: Normal uterus, ovaries, and fallopian tubes. There was a liveborn male. Apgars 7 at one minute and 8 at five minutes. Weight 7 pounds 5 ounces. Clear amniotic fluid. HOSPITAL COURSE: The patient was admitted for diffuse abdominal pain and tenderness. She had normal vital signs and a normal CMP and CBC. However, her protein:creatinine ratio was 2.6, which was rochelle rly abnormal, and so the decision was made to deliver her. Her abdominal tenderness did resolve post delivery. Her section was uncomplicated as was her postoperative course. She was always no rmotensive. Repeat preeclampsia labs were normal on postoperative day 1. She never developed headac he or visual changes. She had no upper abdominal pain and a resolution of her diffuse abdominal pain . By postoperative day 2, she was requesting discharge to home. She was eating, ambulating, urinating, and without difficulties. She did not have any heavy vaginal bleeding. Her mood was stable. Her pain was under good control at rest and flared appropriately with movement. She was afe brile with normal vital signs. She was without distress. Abdomen was soft and appropriately tender without rebound or guarding. The incision was covered by the wound VAC without surrounding erythema. There was no lower extremity edema. hematocrit was 30. DISCHARGE MEDICATIONS: 1. Oxycodone p.r.n. pain, #20, no refills. 2. Ibuprofen p.r.n. pain. 4. Colace p.r.n. to soften stool. 5. vitamins daily. 6. Iron sulfate 325 mg daily for 1 month. 7. Followup at 1 week at [facility] for wound VAC removal. [place] can do so for her 6-week visit. DISCHARGE DISPOSITION: Home. CONDITION: Good. TD: 03/15/2019 10:23
== END 2019-03-15 13:35 | disposition home or self-care (01) | DRG 788 ==
LOC: WFO 10:45 → FBP 10:47 → UNDOADMIN 11:00 → WFO 16:30 → FBP 17:19 → UNDODISIN 03-15 13:35
PROVIDERS: ADMIT Obstetrics & Gynecology; ATTEND Obstetrics & Gynecology
PROC: 10D00Z1 Extraction of Products of Conception, Low, Open Approach (ICD-10-PCS; principal; 2019-03-13)
DX: O14.93 Unspecified pre-eclampsia, third trimester (principal); O34.211 Maternal care for low transverse scar from previous cesarean delivery; N85.8 Other specified noninflammatory disorders of uterus; O32.1XX0 Maternal care for breech presentation, not applicable or unspecified; Z3A.38 38 weeks gestation of pregnancy; Z37.0 Single live birth
CPT/HCPCS: 80053; 81001; 82570; 84156; 85025; 86850; 86900; 86901; 99214; A9270; J0131; J7120; 87086

== ENCOUNTER 2020-02-07 09:33 | Emergency (ER) | payer OTHER ==
[2020-02-07 09:40] VITALS: BP 128/67
--- NOTE | 2020-02-07 09:49 | ED Physician Documentation ---
PD HPI FEMALE - Stated complaint Stated Complaint: FEMALE - Chief complaint Chief Complaint: UTI - History obtained from History obtained from: Patient - Additional information Additional information: About 2 weeks ago she developed dysuria, she took some Azo and it went away. Over the last 2 days she has had burning dysuria again with frequency. No flank pain or fevers. Review of Systems Constitutional: denies: Fever, Chills GI: denies: Abdominal Pain, Nausea, Vomiting : reports: Dysuria, Frequency PD PAST MEDICAL HISTORY - Past Medical History Cardiovascular: None Respiratory: None Neuro: None, Other (headaches) Endocrine/Autoimmune: None GI: None, GERD SENIOR CASE MANAGER: None : None HEENT: None Psych: None Musculoskeletal: None Derm: None - Past Surgical History Past Surgical History: No /SENIOR CASE MANAGER: section - Present Medications Home Medications: Ambulatory Orders Medication Instructions Recorded Confirmed Nitrofurantoin Monohyd/M-Cryst 100 mg PO BID #10 capsule 02/07/20 [Macrobid 100 mg Capsule] - Allergies Allergies/Adverse Reactions: Allergies Allergy/AdvReac Type Severity Reaction Status Date / Time No Known Drug Allergies Allergy Verified 02/07/20 09:40 - Social History Does the pt smoke?: No Smoking Status: Never smoker Does the pt drink ETOH?: No Does the pt have substance abuse?: No - Immunizations Immunizations are current?: Yes - POLST Patient has POLST: No PD ED PE NORMAL - Vitals Vital signs reviewed: Yes - General General: Alert and oriented X 3, No acute distress - Abdomen Abdomen: Soft, Non tender - Back Back: No CVA TTP - Derm Derm: No rash - Neuro Neuro: Alert and oriented X 3, Normal speech Results - Vitals Vitals: Vital Signs - 24 hr 02/07/20 09:36 Temperature 36.9 C Heart Rate 68 Respiratory 18 Rate Blood Pressure 128/67 O2 Saturation 100 Oxygen O2 Source Room air - Labs Labs: Laboratory Tests 02/07/20 09:50 Urine Color YELLOW Urine Clarity CLEAR Urine pH 7.0 Ur Specific [place] 1.010 Urine Protein NEGATIVE Urine Glucose (UA) NEGATIVE Urine Ketones NEGATIVE Urine Occult Blood NEGATIVE Urine Nitrite NEGATIVE Urine Bilirubin NEGATIVE Urine Urobilinogen 0.2 (NORMAL) Ur Leukocyte Esterase NEGATIVE Ur Microscopic Review NOT INDICATED Urine Culture Comments NOT INDICATED Urine HCG, Qual NEGATIVE PD MEDICAL DECISION MAKING - ED course ED course: Symptoms of cystitis with negative UA. She has no discharge. No concern for STDs. She has some itchiness consult could be yeast. She is given Diflucan and Nitrofurantoin with close return precautions. Departure - Departure Disposition: 01 Home, Self Care Clinical Impression: Cystitis Condition: Good Record reviewed to determine appropriate education?: Yes Instructions: ED UTI Cystitis Female Prescriptions: Nitrofurantoin Monohyd/M-Cryst [Macrobid 100 mg Capsule] 100 mg PO BID #10 capsule Comments: Symptoms are typical of a bladder infection, the urine was negative but that can happen sometimes. He received Diflucan here for potential yeast infection and a prescription for antibiotics. Return if worsening or if not better in 48 hours.
[2020-02-07 10:08] LABS: BILIRUBIN,URINE NEGATIVE (NEGATIVE); GLUCOSE, URINE (UA) NEGATIVE (NEGATIVE); KETONES,URINE (UA) NEGATIVE (NEGATIVE); LEUKOCYTE ESTERASE, URINE NEGATIVE (NEGATIVE); NITRITE,URINE NEGATIVE (NEGATIVE); OCCULT BLOOD,URINE NEGATIVE (NEGATIVE); PROTEIN,URINE NEGATIVE (NEGATIVE); UROBILINOGEN,URINE 0.2 (NORMAL) E.U./dL (NORMAL)
[2020-02-07 10:11] LABS: CLARITY,URINE CLEAR (CLEAR); HCG UR QUAL NEGATIVE
[2020-02-07] MEDS ORDERED: FLUCONAZOLE 100 MG TABLET PO STA (10:15)
[2020-02-07] MEDS ORDERED: NITROFURANTOIN MACRO 100 MG CAPSULE PO STA (10:15)
== END 2020-02-07 10:29 | disposition home or self-care (01) ==
LOC: ED 09:33
DX: N30.90 Cystitis, unspecified without hematuria (principal)
CPT/HCPCS: 81003; 81025; 99283; 99284; A9270; 81001; 87086

== ENCOUNTER 2020-12-03 08:00 | Outpatient (CLI) | payer OTHER ==
[2020-12-04 21:10] LABS: CHLAMYDIA TRACHOMATIS DNA NEGATIVE (NEGATIVE); NEISSERIA GONORRHOEAE DNA NEGATIVE (NEGATIVE); TRICHOMONAS VAGINALIS DNA NEGATIVE (NEGATIVE)
== END 2020-12-03 23:59 | disposition home or self-care (01) ==
LOC: LAB.WC 08:00
PROVIDERS: ATTEND Obstetrics & Gynecology
DX: R10.2 Pelvic and perineal pain (principal); Z11.3 Encounter for screening for infections with a predominantly sexual mode of transmission
CPT/HCPCS: 87491; 87591; 87661

== ENCOUNTER 2020-12-11 18:39 | Outpatient (CLI) | payer OTHER ==
--- NOTE | 2020-12-12 08:47 | Ultrasound Report ---
PROCEDURE: Pelvic w/Transvaginal INDICATIONS: PELVIC PAIN TECHNIQUE: Real-time scanning was performed of the pelvic organs, with image documentation. Additional endovagi nal scanning was necessary due to incomplete visualization of the adnexal and endometrial structures by transabdominal scanning. COMPARISON: None. FINDINGS: UTERUS: The uterus is anteverted, demonstrates heterogeneous echotexture, and measures 6.9 x 2.7 x 4. 4 cm. A 1.5 x 1.7 x 1.6 cm echogenic focus is seen in the left lateral uterus, most consistent with a fibroid. The endometrial thickness measures 2.5 mm. RIGHT OVARY: Measures 3 x 2.7 x 3.1 cm. Color-flow projects over the ovarian tissue. LEFT OVARY: Measures 2.3 x 2 x 2 cm. Color-flow projects over the ovarian tissue. OTHER: No appreciable fluid in the cul-de-sac. IMPRESSION: 1.Uterine fibroid as detailed above. Reviewed by: Brooks Delacruz MD on 12/12/2020 8:45 AM PDT Approved by: Brooks Delacruz MD on 12/12/2020 8:45 AM PDT Station ID: [id number]
== END 2020-12-11 18:40 | disposition home or self-care (01) ==
LOC: DI 18:39
PROVIDERS: ATTEND Obstetrics & Gynecology
DX: D25.9 Leiomyoma of uterus, unspecified (principal)